=== PATIENT | female | born 1990 | race Caucasian/White ===

== ENCOUNTER 2018-04-06 05:28 | Day surgery (SDC) | payer MEDICAID ==
[2018-04-06] MEDS ORDERED: SOD CHLORIDE 0.9% 1,000 ML IV ×2 (06:00)
[2018-04-06] MEDS ORDERED: CEFAZOLIN 2 GM/50 ML (PMX) 50 ML IVPB ×2 (06:00)
== END 2018-04-14 09:58 | disposition home or self-care (01) ==
LOC: SDS 05:28
DX: L05.91 Pilonidal cyst without abscess (principal); Z53.9 Procedure and treatment not carried out, unspecified reason
CPT/HCPCS: 84703

== ENCOUNTER 2018-04-17 14:38 | Emergency (ER) | payer MEDICAID ==
[2018-04-17] MEDS: ACETAMINOPHEN 325 MG TAB PO (15:13)
[2018-04-17] MEDS: ONDANSETRON (ODT) 4 MG TAB ODT (15:13)
[2018-04-17 15:25] LABS: ADD MAN DIFF? NO
[2018-04-17 15:31] LABS: BASOPHIL # 0.1 10^3/ul (0.0-0.1); BASOPHILS % 0.5 % (0.0-2.0); EOSINOPHILS # 0.1 10^3/ul (0.0-0.5); EOSINOPHILS % 0.8 % (0.0-7.0); HEMOGLOBIN 12.3 g/dl (12.0-16.0); LYMPHOCYTES # 3.3 10^3/ul (0.8-2.9); LYMPHOCYTES % 25.4 % (15.0-51.0); MEAN CORPUSCULAR HEMOGLOBIN 27.6 pg (29.0-33.0); MEAN CORPUSCULAR HGB CONC 32.4 g/dl (32.0-37.0); MEAN CORPUSCULAR VOLUME 85.2 fl (82.0-101.0); MONOCYTE # 0.9 10^3/ul (0.3-0.9); MONOCYTES % 7.2 % (0.0-11.0); NEUTROPHIL # 8.6 10^3/ul (1.6-7.5); NEUTROPHILS % 65.8 % (39.0-77.0); PLATELET COUNT 314 10^3/UL (140-415); RED BLOOD COUNT 4.46 10^6/ul (4.20-5.40); RED CELL DISTRIBUTION WIDTH 13.7 % (11.5-14.5)
[2018-04-17 15:31] LABS: WHITE BLOOD COUNT 13.1 10^3/ul (4.8-10.8)
[2018-04-17 15:33] LABS: ADD UMIC NO; UR ASCORBIC ACID NEGATIVE (NEGATIVE); UR BILIRUBIN (Dip) NEGATIVE (NEGATIVE); UR BLOOD (Dip) NEGATIVE (NEGATIVE); UR CLARITY CLEAR (CLEAR); UR COLOR YELLOW (YELLOW); UR GLUCOSE (Dip) NEGATIVE (NEGATIVE); UR KETONES (Dip) NEGATIVE (NEGATIVE); UR LEUKOCYTE ESTERASE (Dip) NEGATIVE Leu/ul (NEGATIVE); UR NITRITE (Dip) NEGATIVE (NEGATIVE); UR SPECIFIC GRAVITY (Dip) 1.016 (1.003-1.030); UR TOTAL PROTEIN (Dip) NEGATIVE (NEGATIVE); UR UROBILINOGEN (Dip) NEGATIVE (NEGATIVE)
== END 2018-04-17 17:20 | disposition home or self-care (01) ==
LOC: FTE 14:38
DX: O20.9 Hemorrhage in early pregnancy, unspecified (principal); R10.2 Pelvic and perineal pain; Z3A.01 Less than 8 weeks gestation of pregnancy
CPT/HCPCS: 36415; 76801; 76817; 81003; 84702; 85025; 86900; 86901; 99284-25

== ENCOUNTER 2018-05-25 11:04 | Emergency (ER) | payer MEDICAID ==
[2018-05-25] MEDS: HYDROCODONE/APAP (5/325) TAB PO (12:22)
[2018-05-25] MEDS: ONDANSETRON (ODT) 4 MG TAB ODT (12:22)
[2018-05-25] MEDS: LIDOCAINE 1% (MDV) 10 ML INJ INFIL (12:24)
== END 2018-05-25 13:02 | disposition home or self-care (01) ==
LOC: FTE 11:04
DX: L05.01 Pilonidal cyst with abscess (principal)
CPT/HCPCS: 10080; 99284-25

== ENCOUNTER 2018-05-31 17:00 | Emergency (ER) | payer MEDICAID ==
[2018-05-31] MEDS: ACETAMINOPHEN 325 MG TAB PO (19:10)
[2018-05-31 19:34] LABS: ADD MAN DIFF? NO
[2018-05-31 19:37] LABS: BASOPHILS % 0.2 % (0.0-2.0); EOSINOPHILS # 0.1 10^3/ul (0.0-0.5); EOSINOPHILS % 1.5 % (0.0-7.0); HEMATOCRIT 36.1 % (37.0-47.0); LYMPHOCYTES # 2.6 10^3/ul (0.8-2.9); LYMPHOCYTES % 31.6 % (15.0-51.0); MEAN CORPUSCULAR HEMOGLOBIN 28.6 pg (29.0-33.0); MEAN CORPUSCULAR HGB CONC 33.2 g/dl (32.0-37.0); MEAN CORPUSCULAR VOLUME 86.2 fl (82.0-101.0); MEAN PLATELET VOLUME 11.1 fl (7.4-10.4); MONOCYTE # 0.9 10^3/ul (0.3-0.9); MONOCYTES % 10.8 % (0.0-11.0); NEUTROPHIL # 4.6 10^3/ul (1.6-7.5); NEUTROPHILS % 55.4 % (39.0-77.0); PLATELET COUNT 310 10^3/UL (140-415); RED BLOOD COUNT 4.19 10^6/ul (4.20-5.40); RED CELL DISTRIBUTION WIDTH 13.8 % (11.5-14.5)
[2018-05-31 19:37] LABS: WHITE BLOOD COUNT 8.3 10^3/ul (4.8-10.8)
[2018-05-31 19:51] LABS: ADD UMIC NO; UR ASCORBIC ACID 40 mg/dL (NEGATIVE); UR BILIRUBIN (Dip) NEGATIVE (NEGATIVE); UR BLOOD (Dip) NEGATIVE (NEGATIVE); UR CLARITY SLIGHTLY CLOUDY (CLEAR); UR COLOR YELLOW (YELLOW); UR GLUCOSE (Dip) NEGATIVE (NEGATIVE); UR KETONES (Dip) TRACE mg/dL (NEGATIVE); UR LEUKOCYTE ESTERASE (Dip) NEGATIVE Leu/ul (NEGATIVE); UR MUCUS FEW /HPF (NONE SEEN); UR NITRITE (Dip) NEGATIVE (NEGATIVE); UR RBC 2 /HPF (0-5); UR SPECIFIC GRAVITY (Dip) 1.026 (1.003-1.030); UR SQUAMOUS EPITHELIAL CELL FEW /HPF (FEW); UR TOTAL PROTEIN (Dip) NEGATIVE (NEGATIVE); UR UROBILINOGEN (Dip) 1+ mg/dL (NEGATIVE); UR WBC 2 /HPF (0-5)
[2018-05-31 19:57] LABS: ALANINE AMINOTRANSFERASE 19 IU/L (13-69); ALBUMIN 3.8 g/dl (3.3-4.9); ALBUMIN/GLOBULIN RATIO 1.11; ALKALINE PHOSPHATASE 54 IU/L (42-121); ANION GAP 10 (8-16); ASPARTATE AMINO TRANSFERASE 19 IU/L (15-46); BILIRUBIN,INDIRECT 0.3 mg/dl (0-1.1); BILIRUBIN,TOTAL 0.3 mg/dl (0.2-1.3); BLOOD UREA NITROGEN 9 mg/dl (7-20); CALCIUM 9.1 mg/dl (8.4-10.2); CARBON DIOXIDE 27 mmol/L (21-31); CHLORIDE 106 mmol/L (97-110); CREATININE 0.63 mg/dl (0.44-1.00); GLUCOSE 90 mg/dl (70-220); POTASSIUM 4.1 mmol/L (3.5-5.1); SODIUM 139 mmol/L (135-144); TOTAL PROTEIN 7.2 g/dl (6.1-8.1)
== END 2018-05-31 20:44 | disposition home or self-care (01) ==
LOC: FTE 17:00
DX: O26.891 Other specified pregnancy related conditions, first trimester (principal); R10.2 Pelvic and perineal pain; Z3A.12 12 weeks gestation of pregnancy
CPT/HCPCS: 36415; 76801; 80053; 81001; 81003; 84702; 85025; 86900; 86901; 99284-25

== ENCOUNTER 2018-07-06 20:27 | Emergency (ER) | payer SELFPAY, MEDICAID ==
[2018-07-06] MEDS: ONDANSETRON (ODT) 4 MG TAB ODT (21:46)
[2018-07-06 22:15] LABS: URINE PH (Dip) POC 6.5 (5.0-8.5)
[2018-07-06 22:15] LABS: URINE BLOOD (Dip) POC Negative (NEGATIVE); URINE GLUCOSE (Dip) POC Negative (NEGATIVE); URINE KETONES (Dip) POC Trace (NEGATIVE); URINE LEUKOCYTE EST (Dip) POC Negative (NEGATIVE); URINE NITRITE (Dip) POC Negative (NEGATIVE); URINE TOTAL PROTEIN POC Trace (NEGATIVE)
== END 2018-07-06 22:40 | disposition home or self-care (01) ==
LOC: FTE 20:27
DX: O99.712 Diseases of the skin and subcutaneous tissue complicating pregnancy, second trimester (principal); L05.01 Pilonidal cyst with abscess; O26.892 Other specified pregnancy related conditions, second trimester; R10.2 Pelvic and perineal pain; Z3A.17 17 weeks gestation of pregnancy
CPT/HCPCS: 76805; 81003; 81025; 99284

== ENCOUNTER 2018-07-07 16:48 | Emergency (ER) | payer SELFPAY ==
[2018-07-07] MEDS: morphine 2 MG INJ IV (18:41)
[2018-07-07] MEDS: CEFTRIAXONE 1 GM/50 ML (PMX) 50 ML IVPB (18:41)
[2018-07-07] MEDS: ONDANSETRON 4 MG INJ IV (18:41)
== END 2018-07-07 20:05 | disposition home or self-care (01) ==
LOC: FTE 16:48
DX: O99.712 Diseases of the skin and subcutaneous tissue complicating pregnancy, second trimester (principal); L05.01 Pilonidal cyst with abscess; O10.012 Pre-existing essential hypertension complicating pregnancy, second trimester; Z3A.18 18 weeks gestation of pregnancy
CPT/HCPCS: 10080; 96374; 96375; 99284-25

== ENCOUNTER 2018-08-11 13:37 | Emergency (ER) | payer MEDICAID ==
[2018-08-11] MEDS: ACETAMINOPHEN 325 MG TAB PO (14:31)
[2018-08-11] MEDS: LIDOCAINE 1% (MDV) 20 ML INJ SC (14:59)
[2018-08-11] MEDS: LIDOCAINE 1% (MDV) 50 ML INJ SC (15:00)
== END 2018-08-11 15:22 | disposition home or self-care (01) ==
LOC: FTE 15:22
DX: O99.712 Diseases of the skin and subcutaneous tissue complicating pregnancy, second trimester (principal); L05.91 Pilonidal cyst without abscess; O10.012 Pre-existing essential hypertension complicating pregnancy, second trimester; Z3A.23 23 weeks gestation of pregnancy
CPT/HCPCS: 10080; 99283-25

== ENCOUNTER 2018-10-08 11:19 | Outpatient (CLI) | payer MEDICAID | END 2018-10-08 13:10 | disposition home or self-care (01) | LOC: OBT 11:19 → L-D 11:19 → OBT 13:10 | DX: O36.8130 Decreased fetal movements, third trimester, not applicable or unspecified (principal); Z3A.31 31 weeks gestation of pregnancy | CPT/HCPCS: 76818 ==

== ENCOUNTER 2018-10-09 15:21 | Outpatient (CLI) | payer MEDICAID | END 2018-10-09 17:25 | disposition home or self-care (01) | LOC: OBT 15:21 → L-D 15:21 → OBT 17:25 | DX: O36.8130 Decreased fetal movements, third trimester, not applicable or unspecified (principal); Z3A.32 32 weeks gestation of pregnancy | CPT/HCPCS: 76818 ==

== ENCOUNTER 2018-10-28 10:56 | Emergency (ER) | payer MEDICAID ==
[2018-10-28] MEDS: LIDOCAINE 1% (MPF) 5 ML VIAL INFIL (12:03)
== END 2018-10-28 15:01 | disposition home or self-care (01) ==
LOC: FTE 10:56
DX: O99.713 Diseases of the skin and subcutaneous tissue complicating pregnancy, third trimester (principal); L02.31 Cutaneous abscess of buttock; O10.013 Pre-existing essential hypertension complicating pregnancy, third trimester; Z3A.34 34 weeks gestation of pregnancy
CPT/HCPCS: 10060; 99283-25

== ENCOUNTER 2018-11-29 11:28 | Emergency (ER) | payer MEDICAID ==
[2018-11-29] MEDS ORDERED: LIDOCAINE 1% (MDV) 20 ML INJ (12:05)
[2018-11-29] MEDS: TRIMETHOPRIM/SULFAMETHOX (DS) TAB PO (12:08)
[2018-11-29] MEDS: ACETAMINOPHEN 325 MG TAB PO (12:08)
[2018-11-29] MEDS: LIDOCAINE 1%/EPI (MDV) 50 ML INJ INJ (12:08)
[2018-11-29] MEDS: CEPHALEXIN 500 MG CAP PO (12:08)
== END 2018-11-29 12:49 | disposition home or self-care (01) ==
LOC: FTE 11:28
DX: O99.719 Diseases of the skin and subcutaneous tissue complicating pregnancy, unspecified trimester (principal); L05.01 Pilonidal cyst with abscess; O10.019 Pre-existing essential hypertension complicating pregnancy, unspecified trimester; Z3A.00 Weeks of gestation of pregnancy not specified
CPT/HCPCS: 10080; 99283-25

== ENCOUNTER 2019-02-05 12:00 | Day surgery (SDC) | payer MEDICAID ==
[2019-02-05] MEDS ORDERED: ONDANSETRON 4 MG INJ IV (16:00)
[2019-02-05] MEDS ORDERED: OXYCODONE/ACETAMINOPHEN (5/325) TAB PO ×2 (16:00)
[2019-02-05] MEDS ORDERED: ALBUTEROL 0.083% (NEB) 2.5 MG/3 ML AMP HHN (16:00)
[2019-02-05] MEDS ORDERED: MEPERIDINE 25 MG INJ IV (16:00)
[2019-02-05] MEDS ORDERED: DIPHENHYDRAMINE 50 MG INJ IV (16:00)
[2019-02-05] MEDS ORDERED: HYDROmorphONE 1 MG/5 ML IV SYRINGE IV ×2 (16:00)
[2019-02-05] MEDS ORDERED: FENTAnyl 50 MCG/ML VIAL IV ×2 (16:00)
[2019-02-05] MEDS ORDERED: KETOROLAC 30 MG INJ IV (16:00)
[2019-02-05] MEDS ORDERED: MIDAZOLAM 1 MG/ML 2 ML INJ (16:46)
[2019-02-05] MEDS ORDERED: METOCLOPRAMIDE 10 MG INJ (16:46)
[2019-02-05] MEDS ORDERED: ONDANSETRON 4 MG INJ (16:46)
[2019-02-05] MEDS ORDERED: PROPOFOL 20 ML (16:46)
[2019-02-05] MEDS ORDERED: FENTAnyl 50 MCG/ML VIAL (16:52)
[2019-02-05] MEDS ORDERED: KETOROLAC 30 MG INJ (17:08)
[2019-02-05] MEDS ORDERED: NEOSTIGMINE 3 MG/3 ML SYRINGE (17:12)
[2019-02-05] MEDS ORDERED: GLYCOPYRROLATE 0.4 MG INJ (17:12)
[2019-02-05] MEDS: BUPIVACAINE 0.5%/EPI (SDV) 30 ML INJ (17:24)
[2019-02-05] MEDS: LIDOCAINE 1% (MPF) 30 ML INJ (17:24)
[2019-02-05] MEDS: HYDROmorphONE 1 MG/5 ML IV SYRINGE IV (19:32)
[2019-02-05] MEDS: FENTAnyl 50 MCG/ML VIAL IV (19:32)
== END 2019-02-05 19:40 | disposition home or self-care (01) ==
LOC: SDS 12:00
DX: L05.91 Pilonidal cyst without abscess (principal)
CPT/HCPCS: 11771; 82962; 84703; 88304